=== PATIENT | female | born 1970 | race African-American/Black ===

== ENCOUNTER 2017-02-09 11:38 | Emergency (ER) | payer OTHER ==
[~2017-02-09] VITALS: Ht 157.5 cm; Wt 78.0 kg
[~2017-02-09 11:38] MED LIST: ATOR20TA65 PO; CETI10TA6 PO; HUMALOG; IBUP-1510 PO; LEVEMIR; LISI10TA5 PO; NASOI BOTHNSTRLS; QUET100T PO
[2017-02-09 11:58] VITALS: BP 112/67
== END 2017-02-09 17:32 | disposition home or self-care (01) ==
LOC: ER 15:29
DX: D17.1 Benign lipomatous neoplasm of skin and subcutaneous tissue of trunk (principal); G89.29 Other chronic pain; M25.512 Pain in left shoulder; E11.9 Type 2 diabetes mellitus without complications; E78.00 Pure hypercholesterolemia, unspecified; I25.2 Old myocardial infarction; Z90.710 Acquired absence of both cervix and uterus
CPT/HCPCS: 74176; 81025; 99284

== ENCOUNTER 2017-08-29 09:48 | Emergency (ER) | payer OTHER ==
[~2017-08-29] VITALS: Ht 157.5 cm; Wt 77.0 kg
[~2017-08-29 09:48] MED LIST changes: -IBUP-1510 PO; +IBUP-2030 PO
[2017-08-29] MEDS ORDERED: LOSA25TA12 PO (10:00)
[2017-08-29] MEDS ORDERED: SODIUM CHLORIDE 0.9% 1,000 ML IV ONE (12:07)
[2017-08-29] MEDS ORDERED: DIPHENHYDRAMINE 50MG/ML VIAL IV ONE (12:15)
[2017-08-29] MEDS ORDERED: KETOROLAC 15MG/ML VIAL IV ONE (12:15)
[2017-08-29] MEDS ORDERED: ACETAMINOPHEN 500MG TABLET PO ONE (12:15)
[2017-08-29] MEDS ORDERED: METOCLOPRAMIDE HCL 10MG/2ML VIAL IV ONE (12:15)
[2017-08-29 12:40] LABS: BASOPHILS % 0.7 % (0.0-2.0); EOSINOPHILS % 1.6 % (0.0-5.0); HEMATOCRIT. 40.1 % (36.0-48.0); LYMPHOCYTES % 39.2 % (20.0-50.0); MEAN CORPUSCULAR HEMOGLOBIN 29.2 pg (28.0-32.0); MEAN CORPUSCULAR VOLUME 89.7 fL (81.0-99.0); MEAN PLATELET VOLUME 10.4 fl (7.4-10.4); MONOCYTES % 7.4 % (2.0-8.0); NEUTROPHILS % 51.1 % (40.0-76.0); PLATELET 206 x1000/uL (130-400); RED BLOOD CELL COUNT 4.47 mill/uL (4.2-5.4); RED CELL DISTRIBUTION WIDTH 13.7 % (11.6-14.6)
[2017-08-29 12:43] LABS: CARBON DIOXIDE 32 mEq/L (21-32); CHLORIDE 104 mEq/L (98-107)
[2017-08-29 14:06] VITALS: BP 131/72
== END 2017-08-29 14:07 | disposition home or self-care (01) ==
LOC: ER 09:48
DX: S46.092A Other injury of muscle(s) and tendon(s) of the rotator cuff of left shoulder, initial encounter (principal); G44.209 Tension-type headache, unspecified, not intractable; E11.65 Type 2 diabetes mellitus with hyperglycemia; E78.00 Pure hypercholesterolemia, unspecified; F17.200 Nicotine dependence, unspecified, uncomplicated; Z79.4 Long term (current) use of insulin; Z90.710 Acquired absence of both cervix and uterus; Z98.890 Other specified postprocedural states; X58.XXXA Exposure to other specified factors, initial encounter; Y93.89 Activity, other specified; Y92.89 Other specified places as the place of occurrence of the external cause; Y99.8 Other external cause status
CPT/HCPCS: 36415; 80053; 82962; 85025; 96361; 96374; 96375; 99284; J1200; J1885; J2765; J7030; Z7610

== ENCOUNTER 2017-09-18 10:07 | Emergency (ER) | payer OTHER ==
[~2017-09-18] VITALS: Ht 157.5 cm; Wt 78.0 kg
[~2017-09-18 10:07] MED LIST changes: +LOSA25TA12 PO
[2017-09-18 11:43] LABS: BASOPHILS % 0.6 % (0.0-2.0); EOSINOPHILS % 1.2 % (0.0-5.0); HEMATOCRIT. 39.5 % (36.0-48.0); HEMOGLOBIN. 12.8 g/dL (12.0-16.0); LYMPHOCYTES % 29.7 % (20.0-50.0); MEAN CORPUSCULAR HEMOGLOBIN 29.3 pg (28.0-32.0); MEAN CORPUSCULAR VOLUME 90.1 fL (81.0-99.0); MEAN PLATELET VOLUME 9.2 fl (7.4-10.4); MONOCYTES % 6.9 % (2.0-8.0); NEUTROPHILS % 61.6 % (40.0-76.0); PLATELET 290 x1000/uL (130-400); RED BLOOD CELL COUNT 4.38 mill/uL (4.2-5.4); RED CELL DISTRIBUTION WIDTH 13.7 % (11.6-14.6)
[2017-09-18 11:49] LABS: CHLORIDE 107 mEq/L (98-107)
[2017-09-18 11:54] LABS: CARBON DIOXIDE 31 mEq/L (21-32)
[2017-09-18 17:35] VITALS: BP 124/77
== END 2017-09-18 17:35 | disposition home or self-care (01) ==
LOC: ER 10:40
DX: E11.40 Type 2 diabetes mellitus with diabetic neuropathy, unspecified (principal); R20.0 Anesthesia of skin; F17.200 Nicotine dependence, unspecified, uncomplicated; E78.00 Pure hypercholesterolemia, unspecified; I25.2 Old myocardial infarction
CPT/HCPCS: 36415; 70450; 80048; 85025; 99285

== ENCOUNTER 2018-02-02 07:44 | Emergency (ER) | payer OTHER ==
[~2018-02-02] VITALS: Ht 157.5 cm; Wt 78.5 kg
[2018-02-02] MEDS ORDERED: IBUPROFEN 600MG TABLET PO ONE (08:45)
[2018-02-02 09:04] VITALS: BP 132/86
== END 2018-02-02 09:08 | disposition home or self-care (01) ==
LOC: ER 07:51
DX: K59.09 Other constipation (principal); R14.0 Abdominal distension (gaseous); I25.10 Atherosclerotic heart disease of native coronary artery without angina pectoris; E78.00 Pure hypercholesterolemia, unspecified; F17.210 Nicotine dependence, cigarettes, uncomplicated; Z95.5 Presence of coronary angioplasty implant and graft; Z79.899 Other long term (current) drug therapy
CPT/HCPCS: 99282

== ENCOUNTER 2020-12-02 08:51 | Emergency (ER) | payer OTHER ==
[~2020-12-02] VITALS: Ht 157.5 cm; Wt 80.0 kg
[~2020-12-02 08:51] MED LIST changes: -IBUP-2030 PO; +LISI10TA26 PO; -LISI10TA5 PO; -LOSA25TA12 PO; +LOSA25TA26 PO
[2020-12-02 08:54] VITALS: BP 135/66
[2020-12-02] MEDS ORDERED: LIDOCAINE HCL/EPINEPHRINE 1%-EPI 1:100,000 20 ML VIAL INFIL ONE (09:15)
[2020-12-02] MEDS ORDERED: CEPH500C2 MT (09:52)
[2020-12-02] MEDS ORDERED: IBUP-2029 MT (09:52)
== END 2020-12-02 10:07 | disposition home or self-care (01) ==
LOC: ER 09:39
DX: L72.3 Sebaceous cyst (principal); E11.9 Type 2 diabetes mellitus without complications; E78.00 Pure hypercholesterolemia, unspecified; Z98.890 Other specified postprocedural states; Z79.899 Other long term (current) drug therapy
CPT/HCPCS: 10060; 99282; Z7610; J3490

== ENCOUNTER 2021-05-29 13:25 | Emergency (ER) | payer OTHER ==
[~2021-05-29] VITALS: Ht 157.5 cm; Wt 73.0 kg
[~2021-05-29 13:25] MED LIST changes: +CEPH500C2 MT; +IBUP-2029 MT
[2021-05-29] MEDS ORDERED: SODIUM CHLORIDE 0.9% 1,000 ML IV ONE (14:30)
[2021-05-29 14:54] LABS: CLARITY URINE CLEAR (CLEAR); COLOR URINE YELLOW (YELLOW); KETONES URINE 1+ (NEGATIVE); LEUKOCYTE ESTERASE URINE NEGATIVE (NEGATIVE); NITRITE URINE POSITIVE (NEGATIVE); OCCULT BLOOD URINE NEGATIVE (NEGATIVE); PROTEIN URINE NEGATIVE (NEGATIVE); SPECIFIC GRAVITY URINE 1.041 (1.005-1.030)
[2021-05-29 14:55] LABS: BASOPHILS % 0.9 % (0.0-2.0); EOSINOPHILS % 0.5 % (0.0-5.0); HEMATOCRIT. 44.3 % (36.0-48.0); HEMOGLOBIN. 14.6 g/dL (12.0-16.0); MEAN CORPUSCULAR HEMOGLOBIN 29.5 pg (28.0-32.0); MEAN CORPUSCULAR VOLUME 89.4 fL (81.0-99.0); MEAN PLATELET VOLUME 10.8 fl (7.4-10.4); NEUTROPHILS % 53.6 % (40.0-76.0); PLATELET 218 x1000/uL (130-400); RED BLOOD CELL COUNT 4.96 mill/uL (4.2-5.4); RED CELL DISTRIBUTION WIDTH 13.9 % (11.6-14.6)
[2021-05-29 14:58] LABS: CHLORIDE 96 mEq/L (98-107)
[2021-05-29 14:59] LABS: INR 0.9; PROTHROMBIN TIME 9.9 sec (9.6-11.0)
[2021-05-29 15:04] LABS: BETA HYDROXYBUTYRATE 0.9 mMol/L (0.0-0.3); C REACTIVE PROTEIN QUANT 3.9 mg/L (0.0-3.0)
[2021-05-29] MEDS ORDERED: INSULIN REGULAR (HUMULIN R) 300UNITS/3ML VIAL SUBCUT ONE (15:30)
[2021-05-29] MEDS ORDERED: AZIT250T12 MT (17:21)
[2021-05-29 17:35] VITALS: BP 135/82
== END 2021-05-29 17:49 | disposition home or self-care (01) ==
LOC: ER 13:25 → CANBEDREQ 18:20
DX: E10.65 Type 1 diabetes mellitus with hyperglycemia (principal); J20.9 Acute bronchitis, unspecified; Z20.822 Contact with and (suspected) exposure to COVID-19; R00.2 Palpitations; R53.1 Weakness; I25.10 Atherosclerotic heart disease of native coronary artery without angina pectoris; F17.210 Nicotine dependence, cigarettes, uncomplicated; Z71.6 Tobacco abuse counseling; Z95.5 Presence of coronary angioplasty implant and graft; Z79.4 Long term (current) use of insulin
CPT/HCPCS: 36415; 71045; 80053; 81003; 82010; 82728; 82962; 83605; 83880; 84145; 84484; 85025; 85610; 86140; 87040; 87077; 87086; 87186; 87426; 87804; 93005; 96372; 99285; 99406; J1815; J7030

== ENCOUNTER 2022-01-07 14:36 | Emergency (ER) | payer OTHER ==
[~2022-01-07] VITALS: Ht 157.5 cm; Wt 63.0 kg
[~2022-01-07 14:36] MED LIST changes: +ASPI-1406 MT; +ATOR80TA MT; -CEPH500C2 MT; -HUMALOG; +INSU100I28 SQ; -LEVEMIR; +LEVO500T89 MT; -LISI10TA26 PO; -LOSA25TA26 PO
[2022-01-07 19:00] LABS: BASOPHILS % 0.4 % (0.0-2.0); EOSINOPHILS % 0.8 % (0.0-5.0); HEMATOCRIT. 39.7 % (36.0-48.0); HEMOGLOBIN. 13.4 g/dL (12.0-16.0); LYMPHOCYTES % 28.4 % (20.0-50.0); MEAN CORPUSCULAR HEMOGLOBIN 30.4 pg (28.0-32.0); MEAN CORPUSCULAR VOLUME 90.2 fL (81.0-99.0); MEAN PLATELET VOLUME 9.9 fl (7.4-10.4); MONOCYTES % 9.1 % (2.0-8.0); NEUTROPHILS % 61.3 % (40.0-76.0); PLATELET 226 x1000/uL (130-400); RED CELL DISTRIBUTION WIDTH 13.6 % (11.6-14.6)
[2022-01-07 19:04] LABS: CHLORIDE 100 mEq/L (98-107)
[2022-01-07 19:09] LABS: CLARITY URINE CLEAR (CLEAR); COLOR URINE DARK YELLOW (YELLOW); KETONES URINE TRACE (NEGATIVE); LEUKOCYTE ESTERASE URINE TRACE (NEGATIVE); NITRITE URINE POSITIVE (NEGATIVE); OCCULT BLOOD URINE NEGATIVE (NEGATIVE); PROTEIN URINE 1+ (NEGATIVE); SPECIFIC GRAVITY URINE 1.036 (1.005-1.030)
[2022-01-07] MEDS ORDERED: SODIUM CHLORIDE 0.9% 1,000 ML IV ONE (19:30)
[2022-01-07] MEDS ORDERED: CEPH500C2 MT (21:42)
[2022-01-07 22:15] VITALS: BP 120/77
== END 2022-01-07 22:57 | disposition home or self-care (01) ==
LOC: ER 14:36
DX: E11.65 Type 2 diabetes mellitus with hyperglycemia (principal); N39.0 Urinary tract infection, site not specified; I25.2 Old myocardial infarction; I10 Essential (primary) hypertension; E78.00 Pure hypercholesterolemia, unspecified; E11.9 Type 2 diabetes mellitus without complications; J45.909 Unspecified asthma, uncomplicated; Z79.82 Long term (current) use of aspirin; Z79.899 Other long term (current) drug therapy; Z98.890 Other specified postprocedural states
CPT/HCPCS: 36415; 80053; 81003; 82962; 85025; 99283; Z7610

== ENCOUNTER 2022-03-28 10:20 | Emergency (ER) | payer OTHER ==
[~2022-03-28] VITALS: Ht 157.5 cm; Wt 73.0 kg
[~2022-03-28 10:20] MED LIST changes: +CEPH500C2 MT; -LEVO500T89 MT; +LEVO500T90 MT
[2022-03-28 10:25] VITALS: BP 158/68
[2022-03-28] MEDS ORDERED: IBUPROFEN 600MG TABLET PO ONE (10:45)
== END 2022-03-28 10:52 | disposition left against medical advice (07) ==
LOC: ER 10:20
DX: R51.9 Headache, unspecified (principal); R68.83 Chills (without fever); I10 Essential (primary) hypertension; J45.909 Unspecified asthma, uncomplicated; E11.9 Type 2 diabetes mellitus without complications; Z20.822 Contact with and (suspected) exposure to COVID-19; Z79.899 Other long term (current) drug therapy
CPT/HCPCS: 99281

== ENCOUNTER 2022-07-17 14:09 | Emergency (ER) | payer OTHER ==
[~2022-07-17] VITALS: Ht 157.5 cm; Wt 72.0 kg
[~2022-07-17 14:09] MED LIST changes: +LEVO-65 MT; -LEVO500T90 MT
[2022-07-17 14:19] VITALS: BP 126/74
[2022-07-17] MEDS ORDERED: NAPROXEN 375MG TABLET PO ONE (15:45)
[2022-07-17 16:02] LABS: BASOPHILS % 0.6 % (0.0-2.0); EOSINOPHILS % 0.8 % (0.0-5.0); HEMATOCRIT. 40.7 % (36.0-48.0); HEMOGLOBIN. 13.5 g/dL (12.0-16.0); LYMPHOCYTES % 34.5 % (20.0-50.0); MEAN CORPUSCULAR HEMOGLOBIN 30.2 pg (28.0-32.0); MEAN CORPUSCULAR VOLUME 90.7 fL (81.0-99.0); MEAN PLATELET VOLUME 9.7 fl (7.4-10.4); MONOCYTES % 6.2 % (2.0-8.0); NEUTROPHILS % 57.9 % (40.0-76.0); PLATELET 243 x1000/uL (130-400); RED BLOOD CELL COUNT 4.49 mill/uL (4.2-5.4); RED CELL DISTRIBUTION WIDTH 13.7 % (11.6-14.6)
[2022-07-17 16:09] LABS: CHLORIDE 102 mEq/L (98-107)
[2022-07-17 16:17] LABS: CREATINE KINASE 105 IU/L (26-192)
[2022-07-17] MEDS ORDERED: NAPR375T5 MT (17:11)
== END 2022-07-17 17:30 | disposition home or self-care (01) ==
LOC: ER 14:09
DX: M62.838 Other muscle spasm (principal); R53.1 Weakness; E11.9 Type 2 diabetes mellitus without complications
CPT/HCPCS: 36415; 80053; 81025; 82550; 82962; 83735; 85025; 93970; 99284

== ENCOUNTER 2022-08-29 16:45 | Emergency (ER) | payer OTHER ==
[~2022-08-29] VITALS: Ht 165.1 cm; Wt 61.0 kg
[~2022-08-29 16:45] MED LIST changes: +NAPR375T5 MT
[2022-08-29 17:23] VITALS: BP 155/80
[2022-08-29] MEDS ORDERED: IBUP-2029 MT (22:05)
== END 2022-08-29 22:38 | disposition home or self-care (01) ==
LOC: ER 16:45
DX: I25.2 Old myocardial infarction (principal); I10 Essential (primary) hypertension; F17.200 Nicotine dependence, unspecified, uncomplicated; E11.9 Type 2 diabetes mellitus without complications; J44.1 Chronic obstructive pulmonary disease with (acute) exacerbation; E78.00 Pure hypercholesterolemia, unspecified; Z98.890 Other specified postprocedural states
CPT/HCPCS: 71045; 73502; 99284

== ENCOUNTER 2022-10-27 23:28 | Emergency (ER) | payer OTHER ==
[~2022-10-27] VITALS: Ht 157.5 cm; Wt 67.4 kg
[2022-10-27 23:41] VITALS: BP 97/64
[2022-10-28] MEDS ORDERED: ACETAMINOPHEN 325MG TABLET PO ONE (00:30)
== END 2022-10-28 00:35 | disposition home or self-care (01) ==
LOC: ER 23:28
DX: M79.641 Pain in right hand (principal); E11.9 Type 2 diabetes mellitus without complications; E78.00 Pure hypercholesterolemia, unspecified; I10 Essential (primary) hypertension; I25.2 Old myocardial infarction; Z98.890 Other specified postprocedural states; Z90.710 Acquired absence of both cervix and uterus; Z79.899 Other long term (current) drug therapy
CPT/HCPCS: 29125; 73130; 99283